=== PATIENT | male | born 1975 | race Two or more races ===

== ENCOUNTER 2023-04-26 15:25 | Emergency (ER) | payer SELFPAY ==
[~2023-04-26] VITALS: Ht 185.4 cm; Wt 86.3 kg
[2023-04-26] MEDS ORDERED: CLIN300C70 PO (15:47)
[2023-04-26 15:58] VITALS: BP 149/85; PULSE 82; RESP 18; TEMP 97.4; O2SAT 100
== END 2023-04-26 16:05 | disposition home or self-care (01) ==
LOC: ER 15:25
DX: S69.82XA Other specified injuries of left wrist, hand and finger(s), initial encounter (principal); L03.012 Cellulitis of left finger; F17.210 Nicotine dependence, cigarettes, uncomplicated; Z98.890 Other specified postprocedural states; Z79.899 Other long term (current) drug therapy; X58.XXXA Exposure to other specified factors, initial encounter; Y93.89 Activity, other specified; Y92.89 Other specified places as the place of occurrence of the external cause; Y99.8 Other external cause status